=== PATIENT | female | born 1975 | race Two or more races ===

== ENCOUNTER 2023-12-10 10:43 | Outpatient (CLI) | payer OTHER | END 2023-12-10 10:54 | disposition home or self-care (01) | LOC: SONOGRAMA 10:43 | PROVIDERS: ATTEND Pathology Anatomic Pathology & Clinical Pathology | DX: R22.1 Localized swelling, mass and lump, neck (principal); D48.19 Other specified neoplasm of uncertain behavior of connective and other soft tissue ==